=== PATIENT | female | born 2000 | race Caucasian/White ===

== ENCOUNTER → 2023-10-25 09:06 | Outpatient (REF) | payer BC, SELFPAY ==
[2023-10-25 13:19] LABS: Urine Albumin Negative (Neg - Trace); Urine Bilirubin Negative (Negative); Urine Character Clear (Clear); Urine Color Yellow; Urine Glucose Negative (Negative); Urine Ketone Negative (Negative); Urine Leukocyte Negative (Negative); Urine Nitrite Negative (Negative); Urine Occult Blood Negative (Negative); Urine Specific Gravity 1.015 (<1.030); Urine Urobilinogen Negative (Neg - 1+)
[2023-10-25 13:36] LABS: Amylase 58 U/L (30-110); Lipase 94 U/L (23-300)
[2023-10-25 13:52] LABS: Free T4 0.98 ng/dl (0.78-2.19)
[2023-10-25 14:06] LABS: Cortisol, Random 10.9 ug/dl; TSH 1.17 uIU/ml (0.47-4.68)
[2023-10-26 14:40] LABS: Adrenocorticotropic Hormone 5.6 pg/mL (7.2-63.3)
== END ==
LOC: HWLAB 09:06
PROVIDERS: ATTENDING PHYSICIAN Nurse Practitioner
DX: K59.00 Constipation, unspecified (principal)
CPT/HCPCS: 36415; 81003; 82024; 82150; 82533; 83690; 84439; 84443

== ENCOUNTER 2023-12-05 18:43 | Emergency (ER) | payer BC, SELFPAY ==
[2023-12-05 18:48] VITALS: BP 113/66
[2023-12-05 19:19] VITALS: BMI 22.9
[2023-12-05 19:24] LABS: Urine Albumin Trace (Neg - Trace); Urine Bilirubin Negative (Negative); Urine Character Clear (Clear); Urine Color Yellow; Urine Glucose Negative (Negative); Urine Ketone Trace (Negative); Urine Leukocyte 1+ (Negative); Urine Nitrite Negative (Negative); Urine Occult Blood Negative (Negative); Urine Urobilinogen Negative (Neg - 1+)
[2023-12-05 19:25] LABS: % Eosinophils 2.3 % (0-6); % Immature Granulocytes 0.3 % (0-0.5); % Lymphocytes 42.4 % (20.5-51.1); % Monocytes 6.9 % (1.7-9.3); % Neutrophils 47.1 % (42.2-75.2); Absolute Basophils 0.1 10^3/uL (0-0.2); Absolute Eosinophils 0.2 10^3/uL (0-0.7); Absolute Lymphocytes 3.1 10^3/uL (1.2-3.4); Absolute Monocytes 0.5 10^3/uL (0.1-0.6); Absolute Neutrophils 3.4 10^3/uL (1.4-6.5); Hematocrit 37.4 % (37.0-47.0); Hemoglobin 12.8 g/dL (12.0-16.0); Mean Corp Hgb Conc. 34.2 g/dL (33.0-37.0); Mean Corpuscular Hgb 31.3 pg (27.0-31.0); Mean Corpuscular Volume 91.4 fL (81.0-99.0); Mean Platelet Volume 10.2 fL (7.4-10.4); Nucleated Red Blood Cells % 0 %; Platelet Count 352 10^3/uL (130-400); Red Blood Cell Count 4.09 10^6/uL (4.20-5.40); Red Cell Dist. Width 12.6 % (11.5-14.5); White Blood Cell Count 7.3 10^3/uL (4.8-10.8)
[2023-12-05] MEDS: BENTYL 20 MG PO (19:28)
--- NOTE | 2023-12-05 19:29 | ED.GENMED ---
History of Present Illness
General
Chief Complaint: Abdominal Pain
Source: patient and family
Time Seen by Provider: 12/05/23 19:03
Travel History
Have you had any contact with someone who has COVID-19?: No
Do you have any symptoms of coronavirus? Fever > 100 degrees, chills, cough, shortness of breath, sore throat, loss of taste or smell, muscle aches, or headache?: No
History of Present Illness
History of Present Illness:
22-year-old female with past medical history of chronic abdominal pain, chronic constipation, ovarian cysts presents to the emergency department for evaluation of left-sided abdominal pain that has been somewhat ongoing but today started to feel
little bit different accompanied with some nausea and decreased p.o. intake. Patient has been worked up by GI extensively with patient having colonoscopy and CT imaging but without any obvious pathology. Patient does have a noted dairy sensitivity
and has pretty much ruled this out of her diet completely. Had an appointment with endocrinology yesterday but again without any specific findings noted. Patient's last menstrual period yesterday. States pain does not seem to be any worse during
or after menstrual's. No fevers, chills, rigors, urinary symptoms or any other concerns.
Past History
Past History
ED Past Medical History: Other (chronic constipation, ovarian cyst)
ED Past Surgical History: Tonsilectomy and Other (colonoscopy)
Social History
Tobacco: Non-smoker
Alcohol: Occasional
Drug: None
Personal: Single
Living: with family
Review of Systems
Review of Systems
All Other Systems: ROS reviewed and negative except as documented in HPI and ROS
Phy Exam
Physical Exam
Physical Exam:
GENERAL: Alert , in no apparent distress
EYE: clear conjunctiva b/l
HEAD: NCAT
ENT: o/p clr, mmm.
CARDIAC: Regular rate and rhythm
LUNGS: Clear breath sounds bilaterally, no acute respiratory distress, no wheezes/rales/rhonchi
ABDOMEN: Soft, generalized tenderness but a little worse in the left lower part of the abdomen, no r/g, no cvat
NEUROLOGICAL: Alert and oriented
SKIN: Warm and dry, skin intact.
MUSCULOSKELETAL: No edema, well perfused.
PSYCH: Normal and appropriate interaction.
Scores
Heart Failure Risk
Heart Failure Risk Score: Not Applicable
Heart Score for Chest Pain Patients
STEMI patient?: Not applicable
Withdrawal Assessment of Alcohol
Withdrawal Assessment Completed?: Not applicable
Course
Orders/Labs/Results
Orders:
Orders
12/05/23 19:10
IV Insert/Care/Rem.- Treatment PRN
Test Result ONCE
12/05/23 19:15
Complete Blood Count/With Diff Urgent
Comprehensive Metabolic Panel Urgent
HCG, Serum Qualitative Screen Urgent
Lipase Urgent
Urinalysis Reflex To Culture Urgent
Date Specimen was Collected: 12/05/23
Time Specimen was Collected: 19:10
Urine Microscopic Reflex Cult Urgent
Urine Culture Urgent
AJAY Source: U
Specimen Description:
Date Specimen was Collected: 12/05/23
Time Specimen was Collected: 19:10
12/05/23 19:22
Dicyclomine [Bentyl] 20 mg PO NOW STA
CR Abdomen - 1 View Urgent
Comment:
Reason For Exam: generalized abd pain, hx chronic constipation
US Pelvis Transvaginal Only Urgent
Comment:
Reason For Exam: left sided abd pain
Abnormal Lab Results
12/05/23
19:15
RBC 4.09 L 10^6/uL
(4.20-5.40)
MCH 31.3 H pg
(27.0-31.0)
Urine Ketones Trace A
(Negative)
Leukocyte Esterase Rfl 1+ A
(Negative)
Urine WBC (Reflex) 11-15 A /HPF
(0-5)
Urine Bacteria (Reflex) Moderate A
(Negative)
12/05/23 19:15
12/05/23 19:15
Vital Signs
Initial and Last Documented VS:
Initial Vital Signs
Temp Pulse Resp BP Pulse Ox
98.2 F 66 16 113/66 100
12/05/23 18:48 12/05/23 18:48 12/05/23 18:48 12/05/23 18:48 12/05/23 18:48
Last Documented Vital Signs
Temp Pulse Resp BP Pulse Ox
98.2 F 52 18 95/52 100
12/05/23 18:48 12/05/23 20:16 12/05/23 20:16 12/05/23 20:16 12/05/23 20:16
MDM/Problems Addressed
Differential Diagnosis Includes:
Acute on chronic exacerbation of pain, less concern for colitis/diverticulitis, ovarian cyst,
MDM/Problems Addressed:
22-year-old female presenting to the emergency department for evaluation of abdominal pain, noted extensive workup in the past for similar related pain. Has been seen by GI, yesterday was seen by endocrinology without any specific etiology found
during her workups. Overall I am less suspicious for any emergent pathologies. Will obtain labs, ultrasound to evaluate for possible ovarian cyst, x-ray of the abdomen ordered to evaluate for any obstruction or signs of constipation. Will trial
Bentyl as patient has not had this before for antispasmodic symptoms.
Chronic conditions affecting care: Other (chronic constipation)
*Radiology
Radiology exam reviewed: radiology read reviewed
*Pulse Oximetry
Patient hypoxic: no
*Critical Care Note
Total Time (30-74mins, 75-104mins- exclusive of procedures): Not Applicable
Data Reviewed
Review of Other/Old Records Reveals: Labs and Records (unremarkable colonoscopy in 07/12)
Comment
Comment:
Patient's urinalysis shows 1+ leukocytes with 11-15 WBCs however there are increased squamous cells, bacteria and mucus likely signifying a contaminated sample. Culture was sent. Overall I am less suspicious for urinary tract infection as patient
does not have any urinary symptoms.
Patient Management
Escalation/DeEscalation of care consider admission/obs:
Patient feeling significantly improved with dicyclomine. Will send home with Rx for this. US and XR unremarkable. Patient informed of simple left ovarian cyst. Stable for d/c home
ED Attending Note
-
Portions of this chart may have been created with voice recognition software.� Occasional wrong word or��sound alike� substitutions may have occurred due to the inherent limitations of voice recognition software.
Discharge Plan
Departure
Patient Disposition: Home (Routine Discharge)
Date of Disposition: 12/05/23
Time of Disposition: 20:18
Patient with high blood pressure during this ER visit?: No
Discharge Problem:
Abdominal pain
Instructions: Abdominal Pain
Prescriptions:
New
dicyclomine 20 mg tablet
20 mg PO TID PRN (Reason: abdominal pain) Qty: 21 0RF
No Action
Ibsrela 50 mg Tablet
50 mg PO BID
Referrals:
Yuko Tello, DO [Family Provider] -
Interventions
Interventions:
*Risk Screen - Suicide Last Done: 12/05/23 20:16
*General Assessment Last Done: 12/05/23 19:30
*Neglect/Abuse Screening Last Done: 12/05/23 19:31
ED- Fall Risk Assessment Last Done: 12/05/23 19:31
*ED COVID-19 Vaccine History Last Done: 12/05/23 19:30
*Nursing Disposition Last Done: 12/05/23 20:30
FA-Lryvyx-Nipwjywvtb Assessment Last Done: 12/05/23 19:20
Discharge Date and Time
Discharge Date/Time: 12/05/23 20:31
Print Language: [place] IRISH
[2023-12-05 19:34] LABS: Urine Mucus Moderate
[2023-12-05 19:35] LABS: Urine Bacteria Moderate (Negative); Urine Red Blood Cell 0-2 /HPF (0-2)
[2023-12-05 19:48] LABS: ALT (SGPT) 20 U/L (0-35); AST (SGOT) 25 U/L (14-36); Albumin 4.9 g/dl (3.5-5.0); Alkaline Phosphatase 66 U/L (38-126); Blood Urea Nitrogen 12 mg/dl (7-17); Calcium 10.1 mg/dl (8.4-10.2); Carbon Dioxide 22 mmol/L (22-30); Chloride 107 mmol/L (98-107); Estimated Creatinine Clearance > 125 ml/min; Glucose 94 mg/dl (70-99); Potassium 4.1 mmol/L (3.5-5.1); Sodium 141 mmol/L (135-145); Total Bilirubin 0.6 mg/dl (0.2-1.3); Total Protein 7.6 g/dl (6.3-8.2); eGFR > 60.00
[2023-12-05 19:49] LABS: Lipase 192 U/L (23-300)
[2023-12-05 19:52] LABS: HCG, Serum Qualitative Screen Negative
[2023-12-05 20:16] VITALS: BP 95/52
== END 2023-12-05 20:31 | disposition home or self-care (01) ==
LOC: EMR 18:43
PROVIDERS: EMERGENCY PHYSICIAN Emergency Medicine; FAMILY PHYSICIAN Family Medicine
DX: R10.9 Unspecified abdominal pain (principal); N83.202 Unspecified ovarian cyst, left side
CPT/HCPCS: 99285; 74018; 76830; 80053; 81003; 81015; 83690; 84703; 85025; 87086

== ENCOUNTER 2024-03-11 02:52 | Emergency (ER) | payer BC, SELFPAY ==
[2024-03-11 01:50] VITALS: BP 104/83
--- NOTE | 2024-03-11 03:02 | DOWNTIME ---
There was a [employer] Downtime on 03/11/2024 from 0100 to 03/11/2024 at 0252. Downtime documentation of patient's care, including medication administrations, has been reconciled in the electronic record per guidelines. Refer to the
patient's paper chart under the miscellaneous tab to see printed paper medication records and downtime forms.
--- NOTE | 2024-03-11 03:08 | ED.GENMED ---
History of Present Illness
<BRIAN Ny - Last Filed: 03/12/24 01:42>
General
Chief Complaint: Bowel Problem
Source: patient
Exam Limitations: none
History of Present Illness
History of Present Illness:
This is a 23 year old female that comes in by ambulance with c/o left lower abd pain. States that this started a few hours ago and that she vomited 3 times at home. States that she has not had a BM in the past week. States that she took Bentyl at
home for the pain. Denies any fever,chills, chest pain, SOB, diarrhea, headache, dizziness, urinary burning.
Past History
<BRIAN Ny - Last Filed: 03/12/24 01:42>
Past History
ED Past Medical History: Other (chronic constipation, ovarian cyst)
ED Past Surgical History: Tonsilectomy and Other (colonoscopy)
Social History
Tobacco: Non-smoker
Alcohol: None
Drug: None
Personal: Single
Living: with family
Review of Systems
<BRIAN Ny - Last Filed: 03/12/24 01:42>
Review of Systems
All Other Systems: ROS reviewed and negative except as documented in HPI and ROS
Constitutional: Reports no symptoms; Denies fever or chills
EENT: Reports no symptoms
Respiratory: Reports no symptoms; Denies cough or trouble breathing
Cardiac: Reports no symptoms; Denies chest pain
ABD/GI: Reports abdominal pain, nausea, vomiting and constipated; Denies diarrhea
: Reports no symptoms; Denies dysuria, frequency or urgency
Musculoskeletal: Reports no symptoms
Skin: Reports no symptoms
Neurological: Reports no symptoms; Denies dizzy or headache
Psychiatric: Reports no symptoms
Phy Exam
<BRIAN Ny - Last Filed: 03/12/24 01:42>
General Physical Exam
General Presentation: no apparent distress
General age: appears stated age
General Skin: warm and dry
General Habitus: normal
General Mental: alert
General Hydration: appears well hydrated
ENT Exam
ENT Exam: TM's normal, pharynx normal and neck supple
Eye Exam
Eye Exam: EOMI
Cardiovascular Exam
Cardiovascular Exam: regular rate/rhythm, no edema, no murmur and normal peripheral pulses
Pulmonary Exam
Pulmonary Exam: lungs clear, no respiratory distress, no rales, chest non tender, no crackles, no rhonchi, no wheezing and no cough
Gastrointestinal Exam
Gastrointestinal Exam: normal bowel sounds, soft, no organomegaly, no pulsatile mass, non distended and tender (Left lower abd tenderness with palpation)
Musculoskeletal Exam
Musculoskeletal Exam: full ROM and no edema
Skin Exam
Skin Exam: normal color, warm/dry, no rash and no petechia
Psychiatric Exam
Psychiatric Exam: normal mood/affect
Course
<BRIAN Ny - Last Filed: 03/12/24 01:42>
Orders/Labs/Results
Orders:
Orders
03/11/24 02:15
Complete Blood Count/With Diff Urgent
Comprehensive Metabolic Panel Urgent
HCG, Serum Qualitative Screen Urgent
Lipase Urgent
03/11/24 03:06
Test Result ONCE
Abdomen Xray - 1 View [CR Abdomen - 1 View] Urgent
Comment:
Reason For Exam: Left lower abd pain
US Pelvis W Transvag Combined Urgent
Reason For Exam: Left lower abd pain
03/11/24 03:07
0.9% Sodium Chloride 250 ml [Nss] 250 ml IV BOLUS
Abnormal Lab Results
03/11/24
02:15
MCH 32.8 H pg
(27.0-31.0)
BUN 23 H mg/dl
(7-17)
Calcium 10.5 H mg/dl
(8.4-10.2)
Total Protein 8.4 H g/dl
(6.3-8.2)
Albumin 5.7 H g/dl
(3.5-5.0)
03/11/24 02:15
03/11/24 02:15
WBC 7.87, RBC 4.48, H/H normal. Plt normal.
Vital Signs
Initial and Last Documented VS:
Initial Vital Signs
Temp Pulse Resp BP Pulse Ox
97.4 F 61 18 104/83 100
03/11/24 01:50 03/11/24 01:50 03/11/24 01:50 03/11/24 01:50 03/11/24 01:50
Last Documented Vital Signs
Temp Pulse Resp BP Pulse Ox
97.4 F 60 18 96/53 100
03/11/24 01:50 03/11/24 05:37 03/11/24 05:37 03/11/24 05:37 03/11/24 05:37
Samsonlt;Adilson Howe, DO - Last Filed: 03/11/24 05:20>
Orders/Labs/Results
Orders:
Orders
03/11/24 02:15
Complete Blood Count/With Diff Urgent
Comprehensive Metabolic Panel Urgent
HCG, Serum Qualitative Screen Urgent
Lipase Urgent
03/11/24 03:06
Test Result ONCE
Abdomen Xray - 1 View [CR Abdomen - 1 View] Urgent
Comment:
Reason For Exam: Left lower abd pain
US Pelvis W Transvag Combined Urgent
Reason For Exam: Left lower abd pain
03/11/24 03:07
0.9% Sodium Chloride 250 ml [Nss] 250 ml IV BOLUS
Abnormal Lab Results
03/11/24
02:15
MCH 32.8 H pg
(27.0-31.0)
BUN 23 H mg/dl
(7-17)
Calcium 10.5 H mg/dl
(8.4-10.2)
Total Protein 8.4 H g/dl
(6.3-8.2)
Albumin 5.7 H g/dl
(3.5-5.0)
03/11/24 02:15
03/11/24 02:15
Vital Signs
Initial and Last Documented VS:
Initial Vital Signs
Temp Pulse Resp BP Pulse Ox
97.4 F 61 18 104/83 100
03/11/24 01:50 03/11/24 01:50 03/11/24 01:50 03/11/24 01:50 03/11/24 01:50
Last Documented Vital Signs
Temp Pulse Resp BP Pulse Ox
97.4 F 60 18 96/53 100
03/11/24 01:50 03/11/24 05:37 03/11/24 05:37 03/11/24 05:37 03/11/24 05:37
<BRIAN Ny - Last Filed: 03/12/24 01:42>
MDM/Problems Addressed
Differential Diagnosis Includes:
Constipation. Ruptured ovarian cyst.
MDM/Problems Addressed:
This is a 23 year old female that comes in with c/o no BM in a week. States that a few hours ago she started with left lower abd pain which caused her to vomit 3 times at home
Will check labs, US and KUB.
Chronic conditions affecting care:
Constipation, Ovarian cyst.
Acute Exacerbation and/or Progression of Chronic Illness:
Constipation
<BRIAN Ny - Last Filed: 03/12/24 01:42>
*Radiology
Radiology exam reviewed: radiology read reviewed (US-No evidence for ovarian torsion. Redemonstration of large simple left paraovarian cyst now measuring up to 7.4cm. KUB-Moderate colonic stool burden. Nonobstructive bowel gas pattern. No
appreciable intraperitoneal free air. No abnormal soft tissue calcifications. The osseous structures ) and other (X-ray cont- Unremarkable. )
*Pulse Oximetry
Patient hypoxic: no
*EKG
Interpreted by ED Provider?: NA
Rate: EKG- N/A
*Chief Engineer Research Interpretation
Rate: Chief Engineer Research- N/A
*Critical Care Note
Total Time (30-74mins, 75-104mins- exclusive of procedures): Not Applicable
<Adilson Howe DO - Last Filed: 03/11/24 05:20>
Update Note
Update Note:
US pelvis
Comparison: 12/05/2023
IMPRESSION:
�Anteverted uterus. No myometrial mass. Unremarkable endometrium, with bilayer measuring 3.6 mm.
�Right ovary measures up to 3.1 cm. Nonedematous stroma. Normal small physiologic follicles. Normal arterial and venous flow on spectral Doppler. No paraovarian mass.
�Left ovary measures up to 2.3 cm. Nonedematous stroma. Normal small physiologic follicles. Normal arterial and venous flow on spectral Doppler.
� Adjacent to the left ovary is a large anechoic and unilocular parovarian cyst that measures 7.4 x 6.1 x 4.4 cm, previously 6.3 x 6.7 x 4.5 cm, stable in volume.
�Small anechoic free fluid in the pelvic cul-de-sac is within normal physiologic limits.
ED Attending Note
<BRIAN Ny - Last Filed: 03/12/24 01:42>
-
Portions of this chart may have been created with voice recognition software.� Occasional wrong word or��sound alike� substitutions may have occurred due to the inherent limitations of voice recognition software.
<Adilson Howe DO - Last Filed: 03/11/24 05:20>
ED Attending Note
Patient seen and examined by attending physician: Yes
ED Attending Note:
X-ray shows heavy stool pattern with no obvious signs of obstruction.
Ultrasound shows a paraovarian cyst similar to previous. I discussed the x-ray and the ultrasound findings with patient and family member in the room. Patient states that she deals with chronic constipation and has been doing so for the last 4
years. She is taking Tenapanor for the constipation. I did offer a CT scan to further differentiate this pain. Patient and family member refused stating that she has had many in the past patient feels well enough to be discharged at this time.
She states that her pain has subsided greatly. She does have an appointment with GI in the near future. I did discuss return to ER instructions with patient and family. They verbalized good understanding of said instructions. They will return
with any changing or worsening of condition.
Discharge Plan
Departure
Patient Disposition: Home (Routine Discharge)
Date of Disposition: 03/11/24
Time of Disposition: 05:17
Patient with high blood pressure during this ER visit?: No
Condition: Good
Covid-19: Not Applicable
Discharge Problem:
Abdominal pain, Ovarian cyst, Constipation
Instructions: Constipation, Adult (DC), Ovarian Cyst ED, Abdominal Pain
Prescriptions:
New
diclofenac sodium 75 mg tablet,delayed release (DR/EC)
75 mg PO BID Qty: 10 0RF
No Action
Ibsrela 50 mg Tablet
50 mg PO BID
dicyclomine 20 mg tablet
20 mg PO TID PRN (Reason: abdominal pain) Qty: 21 0RF
Referrals:
Arline Tello DO [Family Provider] -
Marti Mejia MD [Active] -
Activity Restrictions/Additional Instructions:
Your prescriptions were sent electronically to the pharmacy that you specified.
It was a pleasure meeting you and taking part in your care. We hope for your continued healing and wellness.
Please read discharge instructions in their entirety. However, they are for general education and may not describe your exact diagnosis at discharge. Information on your ER visit and medical conditions were discussed with you along with appropriate
follow up information...
If indicated, please take your medications as instructed and indicated on discharge paperwork.
Please schedule a follow up appointment as directed. Call to schedule an appointment
Please return to the emergency department with ANY change in, persisting, or worsening of symptoms. If any of your symptoms do not improve, or persist, or become more severe within 6-12 hours, please return to the emergency department for further
care.
Please return to the emergency department if you develop a headache, neck pain/stiffness, fever greater than 100.4F, chest pain, shortness of breath, persistent nausea, vomiting, slurred speech, difficulty walking, numbness/tingling, weakness, signs
of infection or any other symptoms that are worrisome to you.
If you have any questions or concerns please do not hesitate to call the Hospital at or E-mail me directly at [email or web address]
Interventions
Interventions:
*Risk Screen - Suicide Last Done: 03/11/24 01:50
*General Assessment Last Done: 03/11/24 01:50
*Neglect/Abuse Screening Last Done: 03/11/24 01:50
ED- Fall Risk Assessment Last Done: 03/11/24 01:50
*ED COVID-19 Vaccine History Last Done: 03/11/24 01:50
*Nursing Disposition Last Done: 03/11/24 05:37
IF-Dsghil-Wjspyytzdp Assessment Last Done: 03/11/24 01:50
Discharge Date and Time
Discharge Date/Time: 03/11/24 05:56
Print Language: GREENLANDIC
[2024-03-11 03:14] LABS: ALT (SGPT) 22 U/L (0-35); AST (SGOT) 27 U/L (14-36); Albumin 5.7 g/dl (3.5-5.0); Alkaline Phosphatase 66 U/L (38-126); Blood Urea Nitrogen 23 mg/dl (7-17); Calcium 10.5 mg/dl (8.4-10.2); Carbon Dioxide 24 mmol/L (22-30); Chloride 100 mmol/L (98-107); Estimated Creatinine Clearance 95 ml/min; Glucose 83 mg/dl (70-99); Lipase 161 U/L (23-300); Potassium 4.1 mmol/L (3.5-5.1); Sodium 137 mmol/L (135-145); Total Bilirubin 0.7 mg/dl (0.2-1.3); Total Protein 8.4 g/dl (6.3-8.2); eGFR > 60.00
[2024-03-11 03:23] LABS: HCG, Serum Qualitative Screen Negative
[2024-03-11 05:37] VITALS: BP 96/53
[2024-03-11 06:34] LABS: % Basophils 1.1 % (0-2); % Eosinophils 2.8 % (0-6); % Immature Granulocytes 0.3 % (0-0.5); % Lymphocytes 39.6 % (20.5-51.1); % Monocytes 7.6 % (1.7-9.3); % Neutrophils 48.6 % (42.2-75.2); Absolute Basophils 0.1 10^3/uL (0-0.2); Absolute Eosinophils 0.2 10^3/uL (0-0.7); Absolute Lymphocytes 3.1 10^3/uL (1.2-3.4); Absolute Monocytes 0.6 10^3/uL (0.1-0.6); Absolute Neutrophils 3.8 10^3/uL (1.4-6.5); Hematocrit 42.6 % (37.0-47.0); Hemoglobin 14.7 g/dL (12.0-16.0); Mean Corp Hgb Conc. 34.5 g/dL (33.0-37.0); Mean Corpuscular Hgb 32.8 pg (27.0-31.0); Mean Corpuscular Volume 95.1 fL (81.0-99.0); Mean Platelet Volume 9.9 fL (7.4-10.4); Nucleated Red Blood Cells % 0 %; Platelet Count 314 10^3/uL (130-400); Red Blood Cell Count 4.48 10^6/uL (4.20-5.40); Red Cell Dist. Width 11.9 % (11.5-14.5); White Blood Cell Count 7.9 10^3/uL (4.8-10.8)
== END 2024-03-11 05:56 | disposition home or self-care (01) ==
LOC: EMR 02:52
PROVIDERS: Clinical Nurse Specialist Family Health; EMERGENCY PHYSICIAN Student in an Organized Health Care Education/Training Program; FAMILY PHYSICIAN Internal Medicine
DX: K59.09 Other constipation (principal); R10.32 Left lower quadrant pain; R11.2 Nausea with vomiting, unspecified; N83.292 Other ovarian cyst, left side; N85.4 Malposition of uterus; Z88.2 Allergy status to sulfonamides
CPT/HCPCS: 99284; 74018; 76830; 76856; 80053; 83690; 84703; 85025

== ENCOUNTER → 2024-04-03 08:08 | Outpatient (REF) | payer BC, SELFPAY ==
[2024-04-03 09:37] LABS: % Basophils 0.6 % (0-2); % Eosinophils 1.3 % (0-6); % Immature Granulocytes 0.3 % (0-0.5); % Lymphocytes 30.5 % (20.5-51.1); % Monocytes 6.1 % (1.7-9.3); % Neutrophils 61.2 % (42.2-75.2); Absolute Eosinophils 0.1 10^3/uL (0-0.7); Absolute Lymphocytes 1.9 10^3/uL (1.2-3.4); Absolute Monocytes 0.4 10^3/uL (0.1-0.6); Absolute Neutrophils 3.9 10^3/uL (1.4-6.5); Hematocrit 36.9 % (37.0-47.0); Hemoglobin 12.5 g/dL (12.0-16.0); Mean Corp Hgb Conc. 33.9 g/dL (33.0-37.0); Mean Corpuscular Volume 94.4 fL (81.0-99.0); Mean Platelet Volume 9.8 fL (7.4-10.4); Nucleated Red Blood Cells % 0 %; Platelet Count 281 10^3/uL (130-400); Red Blood Cell Count 3.91 10^6/uL (4.20-5.40); Red Cell Dist. Width 12.4 % (11.5-14.5); White Blood Cell Count 6.4 10^3/uL (4.8-10.8)
[2024-04-03 10:02] LABS: ALT (SGPT) 19 U/L (0-35); AST (SGOT) 23 U/L (14-36); Albumin 4.6 g/dl (3.5-5.0); Alkaline Phosphatase 55 U/L (38-126); Blood Urea Nitrogen 14 mg/dl (7-17); Calcium 10.2 mg/dl (8.4-10.2); Carbon Dioxide 27 mmol/L (22-30); Chloride 101 mmol/L (98-107); Glucose 82 mg/dl (70-99); HDL Cholesterol 68 mg/dl; LDL Cholesterol, Calculated 93 mg/dl; Sodium 140 mmol/L (135-145); Total Bilirubin 0.6 mg/dl (0.2-1.3); Total Cholesterol 175 mg/dl (50-199); Total Protein 6.8 g/dl (6.3-8.2); Triglyceride 71 mg/dl (10-149); Very Low Density Lipoprotein 14 mg/dl (0-30); eGFR > 60.00
[2024-04-03 10:19] LABS: Beta HCG Quantitative < 2.39 mIU/ml; FSH 1.9 mIU/ml; Luteinizing Hormone 1.19 mIU/ml; Prolactin 5.2 ng/ml (3.0-18.6)
[2024-04-03 10:21] LABS: Free T4 0.83 ng/dl (0.78-2.19)
[2024-04-03 10:36] LABS: Cortisol, Random 16.4 ug/dl; TSH < 0.02 uIU/ml (0.47-4.68)
[2024-04-04 17:16] LABS: Insulin, Random 14 uIU/mL
[2024-04-04 19:03] LABS: DHEA Sulfate 108 ug/dL (148-407)
[2024-04-05 02:35] LABS: IGF-1 Z Score Calculation 0.3; Insulin-like Growth Factor I 216 ng/mL (102-317)
== END ==
LOC: HWLAB 08:08
PROVIDERS: ATTENDING PHYSICIAN Obstetrics & Gynecology; FAMILY PHYSICIAN Nurse Practitioner Family; REFERRING PHYSICIAN Internal Medicine Endocrinology, Diabetes & Metabolism
DX: K59.09 Other constipation (principal); R79.89 Other specified abnormal findings of blood chemistry; Z31.41 Encounter for fertility testing
CPT/HCPCS: 36415; 80053; 80061; 82533; 82626; 82627; 82670; 83001; 83002; 83036; 83525; 84146; 84270; 84305; 84402; 84403; 84439; 84443; 84702; 85025

== ENCOUNTER 2024-04-08 06:25 | Day surgery (SDC) | payer BC, SELFPAY ==
[2024-04-08] VITALS (8 sets, daily range): BP systolic 99–116; BP diastolic 55–63; BMI 19.1
[2024-04-08] MEDS: TYLENOL 1000 MG PO (10:16)
[2024-04-08] MEDS: NORMOSOL-R/PLASMALYTE-A 1000 IV (10:26)
[2024-04-08] MEDS: TORADOL 15 MG IV (16:36)
== END 2024-04-08 17:17 | disposition home or self-care (01) ==
LOC: SDS 06:25
PROVIDERS: ATTENDING PHYSICIAN Obstetrics & Gynecology
DX: N83.8 Other noninflammatory disorders of ovary, fallopian tube and broad ligament (principal); N83.292 Other ovarian cyst, left side
CPT/HCPCS: 58662; 88304; 86850; 86900; 86901; C1776

== ENCOUNTER 2024-05-04 23:18 | Emergency (ER) | payer BC, SELFPAY ==
[2024-05-04 23:19] VITALS: BMI 20.9
[2024-05-04 23:20] VITALS: BP 120/78
[2024-05-05 01:20] LABS: % Basophils 0.7 % (0-2); % Eosinophils 0.9 % (0-6); % Immature Granulocytes 0.4 % (0-0.5); % Lymphocytes 16.8 % (20.5-51.1); % Monocytes 5.2 % (1.7-9.3); Absolute Basophils 0.1 10^3/uL (0-0.2); Absolute Eosinophils 0.1 10^3/uL (0-0.7); Absolute Immature Granulocytes 0.1 10^3/uL (0-0.05); Absolute Lymphocytes 2.3 10^3/uL (1.2-3.4); Absolute Monocytes 0.7 10^3/uL (0.1-0.6); Absolute Neutrophils 10.3 10^3/uL (1.4-6.5); Hematocrit 40.8 % (37.0-47.0); Hemoglobin 14.5 g/dL (12.0-16.0); Mean Corp Hgb Conc. 35.5 g/dL (33.0-37.0); Mean Corpuscular Hgb 31.6 pg (27.0-31.0); Mean Corpuscular Volume 88.9 fL (81.0-99.0); Mean Platelet Volume 9.7 fL (7.4-10.4); Nucleated Red Blood Cells % 0 %; Platelet Count 472 10^3/uL (130-400); Red Blood Cell Count 4.59 10^6/uL (4.20-5.40); Red Cell Dist. Width 12.6 % (11.5-14.5); White Blood Cell Count 13.5 10^3/uL (4.8-10.8)
--- NOTE | 2024-05-05 01:31 | ED.GENMED ---
History of Present Illness
General
Chief Complaint: Abdominal Pain
Source: patient
Exam Limitations: none
Time Seen by Provider: 05/05/24 01:21
Nursing documentation reviewed up to this point in time: agreed with
History of Present Illness
History of Present Illness:
23-year-old female presents emergency room complaining of right lower quadrant abdominal pain, nausea and vomiting since 6:30 PM. In March she had left ovarian cyst removal by Dr. Mejia. This does not feel like her ovarian cysts.
Past History
Past History
ED Past Medical History: Other (chronic constipation, ovarian cyst)
ED Past Surgical History: Gynecological (Right ovarian cyst removal), Tonsilectomy and Other (colonoscopy)
Social History
Tobacco: Non-smoker
Alcohol: None
Drug: None
Personal: Single
Living: with family
Review of Systems
Review of Systems
Allergies reviewed?: Yes
All Other Systems: Not applicable
Constitutional: Reports no symptoms; Denies fever
EENT: Reports no symptoms
Respiratory: Reports no symptoms
Cardiac: Reports no symptoms
ABD/GI: Reports abdominal pain and vomiting
: Reports no symptoms
Musculoskeletal: Reports no symptoms
Skin: Reports no symptoms
Neurological: Reports no symptoms
Endocrine: Reports no symptoms
Hematologic/Lymphatic: Reports no symptoms
Psychiatric: Reports no symptoms
Phy Exam
Physical Exam
Physical Exam:
Physical Exam
General: no apparent distress, not acutely ill
Neck: supple. no meningeal signs. normal posterior pharynx
Heart: s1/s2 regular rate and rhythm, no murmur. equal radial
pulses.
HEENT: Pupils equal round reactive to light, EOMI
Lungs: no acute respiratory distress. clear bilaterally
Abdomen: normal bowel sounds. Right lower quad tenderness. No CVAT
Neuro: alert and oriented. no focal neurological deficits cranial nerves II through XII intact
Skin: no rash
Psychiatric: well kept. interactive and cooperative
Extremities: no edema. no calf tenderness. negative homans. good distal pulses
Course
Orders/Labs/Results
Orders:
Orders
05/04/24 23:26
Complete Blood Count/With Diff Urgent
Comprehensive Metabolic Panel Urgent
HCG, Serum Qualitative Screen Urgent
Lipase Urgent
05/04/24 23:28
Test Result ONCE
05/05/24 01:30
CT Abd/pel W Iv And Oral Contr Urgent
Comment:
Reason For Exam: rlq abd pain, n/v
0.9% Sodium Chloride 1000 ml [Nss] 1,000 ml IV BOLUS
Iohexol [Omnipaque] See Protocol PO NOW STA
Ondansetron Injectable [Zofran] 4 mg IV NOW STA
05/05/24 04:15
Amoxicillin 875 mg/Clav 125 mg [Augmentin 875 mg/125 mg] 1 tablet PO NOW STA
Abnormal Lab Results
05/05/24
01:04
WBC 13.5 H 10^3/uL
(4.8-10.8)
MCH 31.6 H pg
(27.0-31.0)
Plt Count 472 H 10^3/uL
(130-400)
Abs Immat Gran (auto) 0.1 H 10^3/uL
(0-0.05)
Absolute Neuts (auto) 10.3 H 10^3/uL
(1.4-6.5)
Absolute Monos (auto) 0.7 H 10^3/uL
(0.1-0.6)
Neutrophils % 76.0 H %
(42.2-75.2)
Lymphocytes % 16.8 L %
(20.5-51.1)
Carbon Dioxide 16 L mmol/L
(22-30)
BUN 24 H mg/dl
(7-17)
Glucose 118 H mg/dl
(70-99)
Calcium 10.4 H mg/dl
(8.4-10.2)
Total Protein 8.6 H g/dl
(6.3-8.2)
Albumin 5.5 H g/dl
(3.5-5.0)
05/05/24 01:04
05/05/24 01:04
Vital Signs
Initial and Last Documented VS:
Initial Vital Signs
Temp Pulse Resp BP Pulse Ox
97.6 F 68 20 120/78 100
05/04/24 23:20 05/04/24 23:20 05/04/24 23:20 05/04/24 23:20 05/04/24 23:20
Last Documented Vital Signs
Temp Pulse Resp BP Pulse Ox
97.6 F 68 20 97/57 98
05/04/24 23:20 05/04/24 23:20 05/04/24 23:20 05/05/24 04:00 05/05/24 04:15
MDM/Problems Addressed
Differential Diagnosis Includes:
Appendicitis, colitis, ovarian cyst, ectopic
MDM/Problems Addressed:
23-year-old female with colitis. hCG negative, no signs of appendicitis. Treat with Augmentin. Follow-up with GI.
Chronic conditions affecting care: Previous abdomnial surgery (Left ovarian cyst removal)
*Radiology
Radiology exam reviewed: radiology read reviewed (CT abdomen pelvis reveals normal appendix, colitis)
*Pulse Oximetry
Patient hypoxic: no
*Critical Care Note
Total Time (30-74mins, 75-104mins- exclusive of procedures): Not Applicable
Data Reviewed
Review of Other/Old Records Reveals: Operative Reports (Diagnostic laparoscopy on 04/09/2024, left paratubal cystectomy)
Patient Management
Social determinants of health affecting care: Living situation and Strong social support
Escalation/DeEscalation of care consider admission/obs:
Admit not indicated
ED Attending Note
-
Portions of this chart may have been created with voice recognition software.� Occasional wrong word or��sound alike� substitutions may have occurred due to the inherent limitations of voice recognition software.
Discharge Plan
Departure
Patient Disposition: Home (Routine Discharge)
Date of Disposition: 05/05/24
Time of Disposition: 04:17
Patient with high blood pressure during this ER visit?: No
Condition: Good
Discharge Problem:
Colitis
Instructions: Colitis
Prescriptions:
New
amoxicillin-pot clavulanate 875-125 mg tablet
1 tab PO BID Qty: 13 0RF
ondansetron 4 mg tablet,disintegrating
4 mg PO Q8H PRN (Reason: nausea and vomiting) 4 Days Qty: 10 0RF
No Action
Ibsrela 50 mg Tablet
50 mg PO BID
dicyclomine 20 mg tablet
20 mg PO TID PRN (Reason: abdominal pain) Qty: 21 0RF
Probiotic 3 billion cell Capsule
3,000 mmu cells PO DAILY
magnesium citrate 125 mg Capsule
500 mg PO DAILY
oxycodone-acetaminophen [Percocet] 5-325 mg tablet
1 tab PO Q4H PRN (Reason: pain) Qty: 7 0RF
Referrals:
Arline Tello DO [Family Provider] -
Crystal Newsome MD [Active] - Call in 1-3 days for appt
Interventions
Interventions:
*Risk Screen - Suicide Last Done: 05/04/24 23:20
*General Assessment Last Done: 05/04/24 23:20
*Neglect/Abuse Screening Last Done: 05/04/24 23:20
*ED COVID-19 Vaccine History Last Done: 05/05/24 02:45
*Nursing Disposition Last Done: 05/05/24 04:37
KP-Opcydi-Dhnsscetpp Assessment Last Done: 05/05/24 01:48
Discharge Date and Time
Discharge Date/Time: 05/05/24 04:38
Print Language: FAROESE
[2024-05-05 01:34] LABS: HCG, Serum Qualitative Screen Negative
[2024-05-05] MEDS: NSS 1000 IV (01:39)
[2024-05-05] MEDS: ZOFRAN 4 MG IV (01:39)
[2024-05-05] MEDS: OMNIPAQUE 50 ML PO (01:39)
[2024-05-05 01:47] VITALS: BP 106/69
[2024-05-05 01:47] LABS: ALT (SGPT) 35 U/L (0-35); AST (SGOT) 32 U/L (14-36); Albumin 5.5 g/dl (3.5-5.0); Alkaline Phosphatase 80 U/L (38-126); Blood Urea Nitrogen 24 mg/dl (7-17); Calcium 10.4 mg/dl (8.4-10.2); Carbon Dioxide 16 mmol/L (22-30); Chloride 102 mmol/L (98-107); Glucose 118 mg/dl (70-99); Potassium 4.3 mmol/L (3.5-5.1); Sodium 139 mmol/L (135-145); Total Protein 8.6 g/dl (6.3-8.2); eGFR > 60.00
[2024-05-05 02:00] VITALS: BP 101/69
[2024-05-05 02:49] LABS: Lipase 134 U/L (23-300)
[2024-05-05 03:00] VITALS: BP 94/63
[2024-05-05 04:00] VITALS: BP 97/57
[2024-05-05] MEDS: AUGMENTIN 875 MG/125 MG 1 TABLET PO (04:27)
== END 2024-05-05 04:38 | disposition home or self-care (01) ==
LOC: EMR 23:18
PROVIDERS: EMERGENCY PHYSICIAN Emergency Medicine; FAMILY PHYSICIAN Internal Medicine
DX: K52.9 Noninfective gastroenteritis and colitis, unspecified (principal)
CPT/HCPCS: 99285; 96374; 96361; 74177; 80053; 83690; 84703; 85025; Q9967

== ENCOUNTER → 2024-10-09 09:31 | Outpatient (REF) | payer BC, SELFPAY ==
[2024-10-09 10:33] LABS: % Basophils 0.8 % (0-2); % Eosinophils 1.5 % (0-6); % Immature Granulocytes 0.4 % (0-0.5); % Lymphocytes 24.1 % (20.5-51.1); % Monocytes 4.6 % (1.7-9.3); % Neutrophils 68.6 % (42.2-75.2); Absolute Basophils 0.1 10^3/uL (0-0.2); Absolute Eosinophils 0.1 10^3/uL (0-0.7); Absolute Lymphocytes 1.8 10^3/uL (1.2-3.4); Absolute Monocytes 0.3 10^3/uL (0.1-0.6); Absolute Neutrophils 5.1 10^3/uL (1.4-6.5); Hematocrit 46.2 % (37.0-47.0); Hemoglobin 15.6 g/dL (12.0-16.0); Mean Corp Hgb Conc. 33.8 g/dL (33.0-37.0); Mean Corpuscular Hgb 32.2 pg (27.0-31.0); Mean Corpuscular Volume 95.3 fL (81.0-99.0); Nucleated Red Blood Cells % 0 %; Platelet Count 315 10^3/uL (130-400); Red Blood Cell Count 4.85 10^6/uL (4.20-5.40); Red Cell Dist. Width 12.4 % (11.5-14.5); White Blood Cell Count 7.5 10^3/uL (4.8-10.8)
[2024-10-09 10:44] LABS: Erythrocyte Sed Rate 2 mm/hour (0-20)
[2024-10-09 10:53] LABS: ALT (SGPT) 32 U/L (0-35); AST (SGOT) 26 U/L (14-36); Albumin 5.7 g/dl (3.5-5.0); Alkaline Phosphatase 65 U/L (38-126); Blood Urea Nitrogen 25 mg/dl (7-17); Calcium 10.8 mg/dl (8.4-10.2); Carbon Dioxide 17 mmol/L (22-30); Chloride 103 mmol/L (98-107); Glucose 83 mg/dl (70-99); Lipase 192 U/L (23-300); Potassium 4.9 mmol/L (3.5-5.1); Sodium 135 mmol/L (135-145); Total Bilirubin 0.9 mg/dl (0.2-1.3); Total Protein 9.2 g/dl (6.3-8.2); eGFR > 60.00
[2024-10-09 10:56] LABS: C-Reactive Protein < 5.00 mg/L (0.0-10.00)
[2024-10-09 11:26] LABS: TSH Reflex To Free T4 1.02 uIU/ml (0.47-4.68)
== END ==
LOC: RAD 09:31
PROVIDERS: ATTENDING PHYSICIAN Physician Assistant; FAMILY PHYSICIAN Family Medicine
DX: K59.00 Constipation, unspecified (principal); R10.12 Left upper quadrant pain
CPT/HCPCS: 36415; 74022; 80053; 83690; 84443; 85025; 85652; 86140

== ENCOUNTER 2024-11-04 01:51 | Emergency (ER) | payer BC, SELFPAY ==
[2024-11-04 01:56] VITALS: BP 124/69
[2024-11-04 02:00] VITALS: BP 123/72
[2024-11-04 02:01] VITALS: BMI 21.9
[2024-11-04] MEDS: DILAUDID 0.5 MG IV (02:03)
[2024-11-04 02:04] LABS: % Basophils 0.4 % (0-2); % Eosinophils 0.4 % (0-6); % Immature Granulocytes 0.3 % (0-0.5); % Lymphocytes 15.1 % (20.5-51.1); % Monocytes 3.3 % (1.7-9.3); % Neutrophils 80.5 % (42.2-75.2); Absolute Lymphocytes 1.6 10^3/uL (1.2-3.4); Absolute Monocytes 0.4 10^3/uL (0.1-0.6); Absolute Neutrophils 8.7 10^3/uL (1.4-6.5); Hematocrit 35.5 % (37.0-47.0); Hemoglobin 12.3 g/dL (12.0-16.0); Mean Corp Hgb Conc. 34.6 g/dL (33.0-37.0); Mean Corpuscular Hgb 31.9 pg (27.0-31.0); Mean Platelet Volume 9.3 fL (7.4-10.4); Nucleated Red Blood Cells % 0 %; Platelet Count 237 10^3/uL (130-400); Red Blood Cell Count 3.86 10^6/uL (4.20-5.40); Red Cell Dist. Width 11.9 % (11.5-14.5); White Blood Cell Count 10.8 10^3/uL (4.8-10.8)
[2024-11-04 02:11] LABS: HCG, Serum Qualitative Screen Negative
--- NOTE | 2024-11-04 02:11 | ED.GENMED ---
History of Present Illness
General
Chief Complaint: Abdominal Pain
Source: patient
Exam Limitations: none
Time Seen by Provider: 11/04/24 02:01
Nursing documentation reviewed up to this point in time: agreed with
History of Present Illness
History of Present Illness:
23-year-old female presents with right lower quadrant abdominal pain. She states that around 6 PM this evening she had severe pain. Initially she thought it was menstrual cramping but she is not due for her period for another 10 days. She states
that that the pain became much more severe and distinct from previous menstrual cramp she had some nausea and vomiting. She does have a history of IBS-C and a history of chronic constipation but states that this feels different. She states that
jarring motions on the ambulance ride over exacerbated her symptoms. Denies fever but still has some nausea. Denies previous abdominal surgeries. Last oral intake was 4 PM.
Past History
Past History
ED Past Medical History: Other (chronic constipation, ovarian cyst)
ED Past Surgical History: Gynecological (Right ovarian cyst removal), Tonsilectomy and Other (colonoscopy)
Social History
Tobacco: Non-smoker
Alcohol: None
Drug: None
Personal: Single
Living: with family
Review of Systems
Review of Systems
Allergies reviewed?: Yes
Other source history: family (Mom is present at the bedside)
All Other Systems: ROS reviewed and negative except as documented in HPI and ROS
Constitutional: Reports no symptoms
EENT: Reports no symptoms
Respiratory: Reports no symptoms
Cardiac: Reports no symptoms
ABD/GI: Reports abdominal pain, nausea and vomiting
: Reports no symptoms
Musculoskeletal: Reports no symptoms
Skin: Reports no symptoms
Neurological: Reports no symptoms
Endocrine: Reports no symptoms
Hematologic/Lymphatic: Reports no symptoms
Psychiatric: Reports no symptoms
Phy Exam
General Physical Exam
General Presentation: well appearing and no apparent distress
General Skin: warm and dry
General Habitus: normal
General Mental: alert
General Hydration: appears well hydrated
ENT Exam
ENT Exam: EOMI, pharynx normal, neck supple and normocephalic
Eye Exam
Eye Exam: PERRL, cornea clear and conjunctiva normal
Cardiovascular Exam
Cardiovascular Exam: regular rate/rhythm, no edema, no murmur and normal peripheral pulses
Pulmonary Exam
Pulmonary Exam: lungs clear, no respiratory distress, no rales, no crackles, no rhonchi, no stridor, no wheezing and no cough
Gastrointestinal Exam
Gastrointestinal Exam: normal bowel sounds, non tender, soft, no organomegaly, no pulsatile mass and non distended
Neurological Exam
Neurological Exam: alert, oriented x3, no motor deficits and speech normal
Musculoskeletal Exam
Musculoskeletal Exam: full ROM and no edema
Skin Exam
Skin Exam: normal color, warm/dry, no rash and no petechia
Psychiatric Exam
Psychiatric Exam: normal mood/affect
Course
Orders/Labs/Results
Orders:
Orders
11/04/24 01:55
Test Result ONCE
11/04/24 01:59
Complete Blood Count/With Diff Urgent
Comprehensive Metabolic Panel Urgent
HCG, Serum Qualitative Screen Urgent
Lipase Urgent
11/04/24 02:03
HYDROmorphone [Dilaudid] 0.5 mg .ROUTE .STK-MED ONE
HYDROmorphone [Dilaudid] 0.5 mg IV NOW STA
11/04/24 02:08
CT Abd/pelvis W Iv Cont Urgent
Comment:
Reason For Exam: RLQ abd pain
Abnormal Lab Results
11/04/24
01:59
RBC 3.86 L 10^6/uL
(4.20-5.40)
Hct 35.5 L %
(37.0-47.0)
MCH 31.9 H pg
(27.0-31.0)
Absolute Neuts (auto) 8.7 H 10^3/uL
(1.4-6.5)
Neutrophils % 80.5 H %
(42.2-75.2)
Lymphocytes % 15.1 L %
(20.5-51.1)
BUN 19 H mg/dl
(7-17)
Glucose 105 H mg/dl
(70-99)
11/04/24 01:59
11/04/24 01:59
Vital Signs
Initial and Last Documented VS:
Initial Vital Signs
Temp Pulse Resp BP Pulse Ox
97.8 F 54 18 124/69 99
11/04/24 01:56 11/04/24 01:56 11/04/24 01:56 11/04/24 01:56 11/04/24 01:56
Last Documented Vital Signs
Temp Pulse Resp BP Pulse Ox
97.8 F 62 19 123/72 99
11/04/24 01:56 11/04/24 02:15 11/04/24 02:00 11/04/24 02:00 11/04/24 04:00
*Critical Care Note
Total Time (30-74mins, 75-104mins- exclusive of procedures): Not Applicable
Update Note
Update Note:
Discussed CT scan findings and lab work with patient.
Wanted to do pelvic ultrasound but patient states that this pain is not originating in her pelvis. She insists it is in her right lower quadrant.
She states that she has had this pain multiple times in the past.
She has had a colonoscopy in the past.
She is under the care of Dr. Newsome, gastroenterology.
She has an appointment with a [facility] specialist for GI motility
Patient is resting comfortably in minimal to no acute distress at time of discharge.
ED Attending Note
-
Portions of this chart may have been created with voice recognition software.� Occasional wrong word or��sound alike� substitutions may have occurred due to the inherent limitations of voice recognition software.
Discharge Plan
Departure
Patient Disposition: Home (Routine Discharge)
Date of Disposition: 11/04/24
Time of Disposition: 05:03
Patient with high blood pressure during this ER visit?: Yes
Discharge Problem:
Abdominal pain, Constipation
Instructions: Constipation, Adult (DC), Abdominal Pain
Prescriptions:
No Action
Ibsrela 50 mg Tablet
50 mg PO BID
dicyclomine 20 mg tablet
20 mg PO TID PRN (Reason: abdominal pain) Qty: 21 0RF
Probiotic 3 billion cell Capsule
3,000 mmu cells PO DAILY
magnesium citrate 125 mg Capsule
500 mg PO DAILY
oxycodone-acetaminophen [Percocet] 5-325 mg tablet
1 tab PO Q4H PRN (Reason: pain) Qty: 7 0RF
amoxicillin-pot clavulanate 875-125 mg tablet
1 tab PO BID Qty: 13 0RF
ondansetron 4 mg tablet,disintegrating
4 mg PO Q8H PRN (Reason: nausea and vomiting) 4 Days Qty: 10 0RF
Referrals:
Crystal Newsome MD [Active] - Next open appointment
UNKNOWN - PT DOES,NOT KNOW [Family Provider] -
Activity Restrictions/Additional Instructions:
Thank You for choosing [facility].
It was a pleasure meeting you and taking part in your care. We hope for your continued healing and wellness.
Please read discharge instructions in their entirety. However, they are for general education and may not describe your exact diagnosis at discharge. Information on your ER visit and medical conditions were discussed with you along with appropriate
follow up information...
If indicated, please take your medications as instructed and indicated on discharge paperwork.
Please schedule a follow up appointment as directed. Call to schedule an appointment
Please return to the emergency department with ANY change in, persisting, or worsening of symptoms. If any of your symptoms do not improve, or persist, or become more severe within 6-12 hours, please return to the emergency department for further
care.
Please return to the emergency department if you develop a headache, neck pain/stiffness, fever greater than 100.4F, chest pain, shortness of breath, persistent nausea, vomiting, slurred speech, difficulty walking, numbness/tingling, weakness, signs
of infection or any other symptoms that are worrisome to you.
If you have any questions or concerns please do not hesitate to call the Hospital at
Interventions
Interventions:
*Risk Screen - Suicide Last Done: 11/04/24 01:56
*General Assessment Last Done: 11/04/24 01:56
*Neglect/Abuse Screening Last Done: 11/04/24 01:56
*ED- Fall Risk Assessment Last Done: 11/04/24 01:56
*ED COVID-19 Vaccine History Last Done: 11/04/24 01:56
*Nursing Disposition Last Done: 11/04/24 05:39
[facility] Assessment Last Done: 11/04/24 02:14
Discharge Date and Time
Discharge Date/Time: 11/04/24 05:40
Print Language: WOLOF
[2024-11-04 02:25] LABS: ALT (SGPT) 24 U/L (0-35); AST (SGOT) 23 U/L (14-36); Alkaline Phosphatase 72 U/L (38-126); Blood Urea Nitrogen 19 mg/dl (7-17); Calcium 9.6 mg/dl (8.4-10.2); Carbon Dioxide 23 mmol/L (22-30); Chloride 104 mmol/L (98-107); Estimated Creatinine Clearance 98 ml/min; Glucose 105 mg/dl (70-99); Lipase 126 U/L (23-300); Potassium 4.3 mmol/L (3.5-5.1); Sodium 139 mmol/L (135-145); Total Bilirubin 0.9 mg/dl (0.2-1.3); Total Protein 7.2 g/dl (6.3-8.2); eGFR > 60.00
--- NOTE | 2024-11-04 11:10 | W.PN.UPDATE ---
Update Note
Progress Note Update
23 yo female seen in ER early this morning for nausea, vomiting and abdominal pain. She had CT Abd/pelvis that revealed right sided hydronephrosis but [facility] reading did not mention distal right UVJ stone. I called the patient to review the
variance and reviewed findings with her mother who is a nurse here at the hospital. I recommended follow up with her GI and possibly urology if not improvement. We did discuss returning to the ER if symptoms worsen. Discussed possibility of
passing the stone on her own. Mom understands findings and will follow up as recommended
== END 2024-11-04 05:40 | disposition home or self-care (01) ==
LOC: EMR 01:51
PROVIDERS: EMERGENCY PHYSICIAN Student in an Organized Health Care Education/Training Program
DX: K59.00 Constipation, unspecified (principal); R10.31 Right lower quadrant pain
CPT/HCPCS: 96374; 99284; 74177; 80053; 83690; 84703; 85025; Q9967

== ENCOUNTER 2024-11-09 07:59 | Emergency (ER) | payer BC, SELFPAY ==
[2024-11-09 08:05] VITALS: BP 115/66
--- NOTE | 2024-11-09 08:26 | ED.GENMED ---
History of Present Illness
General
Chief Complaint: Flank Pain
Source: patient
Exam Limitations: none
Time Seen by Provider: 11/09/24 08:12
History of Present Illness
History of Present Illness:
23-year-old female presents for recurrent right flank and lower abdominal pain. She was here 5 days ago thought initially to have exacerbation of her chronic abdominal pain but then found to have a 2 mm punctate stone in the right UVJ causing mild
hydronephrosis. 2 days ago the pain went away however the pain returned and now she notes significant pain without nausea. She cannot find a comfortable position. No urinary symptoms. No chest pain or shortness of breath. No fevers. No other
complaints
Past History
Past History
ED Past Medical History: Other (chronic constipation, ovarian cyst)
ED Past Surgical History: Gynecological (Right ovarian cyst removal), Tonsilectomy and Other (colonoscopy)
Social History
Tobacco: Non-smoker
Alcohol: None
Drug: None
Personal: Single
Living: with family
Phy Exam
Physical Exam
Physical Exam:
General: Well-appearing but uncomfortable female no acute respiratory distress
HEENT: Normocephalic atraumatic
Heart: Regular rate and rhythm
Lungs: Clear no wheeze
Abdomen soft tender to the right flank and right lower abdomen no guarding rebound
Extremities: No cyanosis
Course
Orders/Labs/Results
Orders:
Orders
11/09/24 08:23
Ketorolac [Toradol] 15 mg IV NOW STA
11/09/24 08:24
Test Result ONCE
11/09/24 08:25
0.9% Sodium Chloride 500 ml [Nss] 500 ml IV BOLUS
11/09/24 08:30
Complete Blood Count/With Diff Urgent
Comprehensive Metabolic Panel Urgent
HCG, Serum Qualitative Screen Urgent
11/09/24 10:24
CT Abd/pel Without Iv Or Oral Urgent
Comment:
Reason For Exam: right flank pain
11/09/24 10:46
Urinalysis Reflex To Culture Urgent
Date Specimen was Collected: 11/09/24
Time Specimen was Collected: 10:45
Urine Microscopic Reflex Cult Urgent
11/09/24 10:47
Acetaminophen [Tylenol] 650 mg PO NOW STA
Abnormal Lab Results
11/09/24 11/09/24
08:30 10:46
RBC 3.78 L 10^6/uL
(4.20-5.40)
Hct 35.6 L %
(37.0-47.0)
MCH 32.3 H pg
(27.0-31.0)
Chloride 109 H mmol/L
(98-107)
Total Protein 6.1 L g/dl
(6.3-8.2)
Urine Albumin (Reflex) 1+ A
(Neg - Trace)
11/09/24 08:30
11/09/24 08:30
Vital Signs
Initial and Last Documented VS:
Initial Vital Signs
Temp Pulse Resp BP Pulse Ox
97.7 F 66 16 115/66 97
11/09/24 08:05 11/09/24 08:05 11/09/24 08:05 11/09/24 08:05 11/09/24 08:05
Last Documented Vital Signs
Temp Pulse Resp BP Pulse Ox
97.7 F 60 16 115/66 99
11/09/24 08:05 11/09/24 11:00 11/09/24 08:05 11/09/24 08:05 11/09/24 11:00
MDM/Problems Addressed
Differential Diagnosis Includes:
Right flank and lower abdominal pain. Differential could include exacerbation of her known kidney stone increasing renal colic. Patient is slightly tender to the right lower abdomen as well. She has IBS-C. Consider constipation. Exam findings
and history not consistent with appendicitis. Her appendix appeared normal on the CT scan 5 days ago. Will recheck labs and urine. Treat with Toradol and fluids.
*Critical Care Note
Total Time (30-74mins, 75-104mins- exclusive of procedures): Not Applicable
Update Note
Update Note:
Patient reexamined still in some discomfort. Discussion was had with patient and mother about other imaging. They did request another CAT scan. CT without contrast was performed which shows 2 mm punctate stone at the UVJ on the right side with
mild hydronephrosis. The appendix was visualized and is normal. There is a moderate amount of stool to suggest constipation. Patient feeling better after Toradol and Tylenol. No infection in the urine. No indication for admission. Will
prescribe Flomax. Stable for discharge with urology follow-up. Return precautions were given
ED Attending Note
-
Portions of this chart may have been created with voice recognition software.� Occasional wrong word or��sound alike� substitutions may have occurred due to the inherent limitations of voice recognition software.
Discharge Plan
Departure
Patient Disposition: Home (Routine Discharge)
Date of Disposition: 11/09/24
Time of Disposition: 13:08
Patient with high blood pressure during this ER visit?: No
Discharge Problem:
Kidney stone
Instructions: Kidney Stones (DC)
Prescriptions:
New
tamsulosin [Flomax] 0.4 mg capsule
0.4 mg PO DAILY Qty: 14 0RF
No Action
Ibsrela 50 mg Tablet
50 mg PO BID
dicyclomine 20 mg tablet
20 mg PO TID PRN (Reason: abdominal pain) Qty: 21 0RF
Probiotic 3 billion cell Capsule
3,000 mmu cells PO DAILY
magnesium citrate 125 mg Capsule
500 mg PO DAILY
oxycodone-acetaminophen [Percocet] 5-325 mg tablet
1 tab PO Q4H PRN (Reason: pain) Qty: 7 0RF
amoxicillin-pot clavulanate 875-125 mg tablet
1 tab PO BID Qty: 13 0RF
ondansetron 4 mg tablet,disintegrating
4 mg PO Q8H PRN (Reason: nausea and vomiting) 4 Days Qty: 10 0RF
Referrals:
Jake Hein MD [Active] -
UNKNOWN - PT DOES,NOT KNOW [Family Provider] -
Activity Restrictions/Additional Instructions:
Drink plenty of fluids. Continue with ibuprofen or Tylenol. Use Flomax as directed. Please return here for develop fever intolerable pain vomiting or other concerning finding. Follow-up with urology otherwise
Interventions
Interventions:
*Risk Screen - Suicide Last Done: 11/09/24 08:05
*General Assessment Last Done: 11/09/24 08:05
*ED- Fall Risk Assessment Last Done: 11/09/24 11:00
*ED COVID-19 Vaccine History Last Done: 11/09/24 11:00
Discharge Date and Time
Print Language: BRAZILIAN
[2024-11-09] MEDS: TORADOL 15 MG IV (08:34)
[2024-11-09] MEDS: NSS 500 IV (08:36)
[2024-11-09 08:39] LABS: % Basophils 1.3 % (0-2); % Eosinophils 2.5 % (0-6); % Immature Granulocytes 0.3 % (0-0.5); % Lymphocytes 38.3 % (20.5-51.1); % Monocytes 5.8 % (1.7-9.3); % Neutrophils 51.8 % (42.2-75.2); Absolute Basophils 0.1 10^3/uL (0-0.2); Absolute Eosinophils 0.2 10^3/uL (0-0.7); Absolute Lymphocytes 2.5 10^3/uL (1.2-3.4); Absolute Monocytes 0.4 10^3/uL (0.1-0.6); Absolute Neutrophils 3.3 10^3/uL (1.4-6.5); Hematocrit 35.6 % (37.0-47.0); Hemoglobin 12.2 g/dL (12.0-16.0); Mean Corp Hgb Conc. 34.3 g/dL (33.0-37.0); Mean Corpuscular Hgb 32.3 pg (27.0-31.0); Mean Corpuscular Volume 94.2 fL (81.0-99.0); Mean Platelet Volume 9.6 fL (7.4-10.4); Nucleated Red Blood Cells % 0 %; Platelet Count 257 10^3/uL (130-400); Red Blood Cell Count 3.78 10^6/uL (4.20-5.40); White Blood Cell Count 6.4 10^3/uL (4.8-10.8)
[2024-11-09 08:53] LABS: HCG, Serum Qualitative Screen Negative
[2024-11-09 09:03] LABS: ALT (SGPT) 28 U/L (0-35); AST (SGOT) 23 U/L (14-36); Albumin 3.8 g/dl (3.5-5.0); Alkaline Phosphatase 58 U/L (38-126); Blood Urea Nitrogen 11 mg/dl (7-17); Calcium 9.3 mg/dl (8.4-10.2); Carbon Dioxide 27 mmol/L (22-30); Chloride 109 mmol/L (98-107); Glucose 86 mg/dl (70-99); Potassium 4.5 mmol/L (3.5-5.1); Sodium 141 mmol/L (135-145); Total Bilirubin 0.6 mg/dl (0.2-1.3); Total Protein 6.1 g/dl (6.3-8.2); eGFR > 60.00
[2024-11-09] MEDS: TYLENOL 650 MG PO (10:52)
[2024-11-09 11:01] LABS: Urine Albumin 1+ (Neg - Trace); Urine Bilirubin Negative (Negative); Urine Character Clear (Clear); Urine Color Yellow; Urine Glucose Negative (Negative); Urine Ketone Negative (Negative); Urine Leukocyte Negative (Negative); Urine Nitrite Negative (Negative); Urine Occult Blood Negative (Negative); Urine Specific Gravity 1.015 (<1.030); Urine Urobilinogen Negative (Neg - 1+)
[2024-11-09 11:30] LABS: Urine Squamous Cell 26-30 /LPF (Few)
[2024-11-09 11:31] LABS: Urine Amorphous Seen
[2024-11-09 11:33] LABS: Urine Red Blood Cell 0-2 /HPF (0-2)
== END 2024-11-09 13:36 | disposition home or self-care (01) ==
LOC: EMR 07:59
PROVIDERS: Physician Assistant; EMERGENCY PHYSICIAN Emergency Medicine
DX: N13.2 Hydronephrosis with renal and ureteral calculous obstruction (principal)
CPT/HCPCS: 96374; 96361; 99284; 74176; 80053; 81003; 81015; 84703; 85025

== ENCOUNTER → 2025-06-02 08:02 | Outpatient (REF) | payer BC, SELFPAY ==
[2025-06-02 10:12] LABS: Beta HCG Quantitative 97.47 mIU/ml
== END ==
LOC: REG 08:02
PROVIDERS: ATTENDING PHYSICIAN Advanced Practice Midwife; FAMILY PHYSICIAN Internal Medicine
DX: O36.80X0 Pregnancy with inconclusive fetal viability, not applicable or unspecified (principal); Z32.01 Encounter for pregnancy test, result positive
CPT/HCPCS: 36415; 76801; 76817; 84702

== ENCOUNTER → 2025-06-05 09:34 | Outpatient (REF) | payer BC, SELFPAY ==
[2025-06-05 10:59] LABS: Beta HCG Quantitative 30.09 mIU/ml
== END ==
LOC: REG 09:34
PROVIDERS: ATTENDING PHYSICIAN Advanced Practice Midwife
DX: O03.9 Complete or unspecified spontaneous abortion without complication (principal)
CPT/HCPCS: 36415; 84702

== ENCOUNTER → 2025-06-14 16:21 | Outpatient (REF) | payer BC, SELFPAY ==
[2025-06-14 17:56] LABS: Beta HCG Quantitative 2.50 mIU/ml
== END ==
LOC: REG 16:21
PROVIDERS: ATTENDING PHYSICIAN Advanced Practice Midwife; FAMILY PHYSICIAN Internal Medicine
DX: O03.9 Complete or unspecified spontaneous abortion without complication (principal)
CPT/HCPCS: 36415; 84702

== ENCOUNTER → 2025-07-20 15:03 | Outpatient (REF) | payer BC, SELFPAY | LOC: REG 15:03 | PROVIDERS: ATTENDING PHYSICIAN Advanced Practice Midwife; FAMILY PHYSICIAN Internal Medicine | DX: Z32.01 Encounter for pregnancy test, result positive (principal) | CPT/HCPCS: 36415; 84702 ==